=== PATIENT | female | born 1950 | race Caucasian/White ===

== ENCOUNTER 2023-04-17 14:59 | Emergency (ER) | payer MEDICARE, OTHER ==
[~2023-04-17] VITALS: Ht 167.6 cm; Wt 73.0 kg
[2023-04-17 17:25] VITALS: BP 156/80
== END 2023-04-17 17:25 | disposition home or self-care (01) ==
LOC: ER 14:59
DX: S51.801A Unspecified open wound of right forearm, initial encounter (principal); W51.XXXA Accidental striking against or bumped into by another person, initial encounter; Z23 Encounter for immunization
CPT/HCPCS: 90715; 99282